=== PATIENT | female | born 1990 | race Caucasian/White ===

== ENCOUNTER 2021-09-13 13:29 | Outpatient (CLI) | payer OTHER | END 2021-09-13 13:30 | disposition home or self-care (01) | LOC: CSHMRI 13:29 | PROVIDERS: ATTEND Orthopaedic Surgery Hand Surgery | DX: S63.641A Sprain of metacarpophalangeal joint of right thumb, initial encounter (principal); S63.641S Sprain of metacarpophalangeal joint of right thumb, sequela; M25.441 Effusion, right hand; M65.9 Synovitis and tenosynovitis, unspecified; M25.741 Osteophyte, right hand; M94.8X4 Other specified disorders of cartilage, hand ==